=== PATIENT | female | born 1985 | race Caucasian/White ===

== ENCOUNTER 2016-12-10 18:19 | Emergency (ER) | payer MEDICAID ==
[~2016-12-10] VITALS: Ht 177.8 cm; Wt 90.0 kg
[2016-12-10 18:21] VITALS: BP 153/93; PULSE 91; RESP 14; TEMP 98; O2SAT 98
== END 2016-12-10 21:05 | disposition left against medical advice (07) ==
LOC: NED 18:19
DX: R06.02 Shortness of breath (principal); R07.89 Other chest pain; Z53.21 Procedure and treatment not carried out due to patient leaving prior to being seen by health care provider
CPT/HCPCS: 99281

== ENCOUNTER 2017-04-30 06:12 | Emergency (ER) | payer MEDICAID ==
[~2017-04-30] VITALS: Ht 177.8 cm; Wt 82.0 kg
[2017-04-30 06:15] VITALS: BP 140/76; PULSE 98; RESP 15; TEMP 99.6; O2SAT 97
--- NOTE | 2017-04-30 06:29 | PD ---
HPI Chief Complaint: Cold / Flu Symptoms Time Seen by Provider: 06:27 Travel History International Travel<30 days: No Contact w/Intl Traveler<30days: No Traveled to known affect area: No History of Present Illness HPI 31-year-old white female presents to emergency department with a 12 hour history of subjective fever and chills, headache, sore throat, congestion, cough , nausea but no vomiting. Positive myalgias, arthralgias and general malaise. She states that a coworker had the same illness the day before at work. PFSH Past Medical History Asthma: Yes Diminished Hearing: No Immunizations Current: No Ulcer: Yes (GI) Tetanus Vaccination: < 5 Years ?: Not LMP: 04/10/17 : 3 Para: 3 Miscarriage: 0 : 0 Ovarian Cysts: No Past Surgical History Cholecystectomy: Yes Social History Alcohol Use: No Tobacco Use: Yes (PPD) Substance Use: No Allergies-Medications (Allergen,Severity, Reaction): Coded Allergies: No Known Allergies (Verified , 04/30/17) Reported Meds & Prescriptions Reported Meds & Active Scripts Active No Active Prescriptions or Reported Medications Review of Systems Except as stated in HPI: all other systems reviewed are Neg Physical Exam Narrative GENERAL: Well-developed, well-nourished in no acute distress. Nontoxic appearing. HEAD: Normocephalic, atraumatic. EYES: Pupils equal round and reactive. Extraocular motions intact. No scleral icterus. No injection or drainage. ENT: TMs clear without erythema. The external auditory canals clear. Nose: clear . Posterior pharynx is pink and moist. No tonsillar edema or exudate. Uvula midline. Airway patent. NECK: Trachea midline.Supple, nontender, moves head freely. No central bony tenderness or spasm. CARDIOVASCULAR: Regular rate and rhythm without murmurs, gallops, or rubs. RESPIRATORY: Clear to auscultation. Breath sounds equal bilaterally. No wheezes , rales, or rhonchi. GASTROINTESTINAL: Abdomen soft, non-tender, nondistended. No hepato-splenomegaly , or palpable masses. No guarding. EXTREMITIES: No clubbing, cyanosis, or edema. No joint tenderness, effusion, or edema noted. BACK: Nontender without deformity or crepitance. No flank tenderness. Data Data Last Documented VS Vital Signs Date Time Temp Pulse Resp B/P Pulse Ox O2 Delivery O2 Flow Rate FiO2 04/30/17 06:15 99.6 98 15 140/76 97 Room Air MDM Medical Decision Making Medical Screen Exam Complete: Yes Emergency Medical Condition: Yes Medical Record Reviewed: Yes Differential Diagnosis MDM: High Differential diagnoses: Pneumonia, bronchitis, URI, asthma, acute febrile illness, viral syndrome Narrative Course Patient's exam is unremarkable. This is acute febrile illness Diagnosis Primary Impression: Acute febrile illness Patient Instructions: General Instructions Departure Forms: Tests/Procedures, Work Release Special Instructions: No work 3 days. Additional Instructions: Rest. Increase fluids. Tylenol and Advil for any fever or discomfort. Follow-up with a medical doctor next 3-5 days. Return to the ER for problems. Scripts No Active Prescriptions or Reported Meds Disposition: 01 DISCHARGE HOME Condition: Stable Brandon Romero Apr 30, 2017 06:29
== END 2017-04-30 06:36 | disposition home or self-care (01) ==
LOC: NEPD 06:12
DX: R50.9 Fever, unspecified (principal); R51 Headache; J02.9 Acute pharyngitis, unspecified; R09.81 Nasal congestion; R05 Cough; R11.0 Nausea; M79.1 Myalgia; M25.50 Pain in unspecified joint; R53.81 Other malaise; J45.909 Unspecified asthma, uncomplicated
CPT/HCPCS: 99282